=== PATIENT | male | born 1990 | race Caucasian/White ===

== ENCOUNTER → 2017-07-17 | Outpatient (CLI) | payer MEDICAID | LOC: M OUTALCOH 12:39 | DX: F11.20 Opioid dependence, uncomplicated (principal) ==

== ENCOUNTER 2017-07-29 09:45 | Outpatient (RCR) | payer MEDICAID | END 2017-08-24 | LOC: M OUTALCOH 08-07 15:00 | DX: F11.20 Opioid dependence, uncomplicated (principal) ==

== ENCOUNTER → 2017-07-29 | Outpatient (CLI) | payer MEDICAID | LOC: M LAB 20:19 | DX: F11.20 Opioid dependence, uncomplicated (principal) ==

== ENCOUNTER → 2017-07-30 | Outpatient (REF) | payer MEDICAID ==
[2017-08-03 08:06] LABS: OXYCODONE SCREEN Negative ng/mL (Cutoff:5)
== END ==
LOC: M LAB REF 15:02
DX: F11.20 Opioid dependence, uncomplicated (principal)

== ENCOUNTER 2017-08-29 11:53 | Outpatient (RCR) | payer OTHER, MEDICAID | END 2017-09-24 | LOC: M OUTALCOH 11:53 | DX: F11.20 Opioid dependence, uncomplicated (principal) ==

== ENCOUNTER → 2017-08-29 | Outpatient (REF) | payer OTHER, MEDICAID ==
[2017-09-02 11:01] LABS: OXYCODONE SCREEN Negative ng/mL (Cutoff:5)
== END ==
LOC: M LABDRAW1 14:33
DX: F11.20 Opioid dependence, uncomplicated (principal)